=== PATIENT | female | born 1995 | race Caucasian/White ===

== ENCOUNTER 2020-09-21 16:12 | Outpatient (CLI) | payer BC, SELFPAY ==
--- NOTE | ~2020-09-21 | US_ITS ---
US breast LT limited DATE: 09/21/2020 16:42 INDICATION: Breast lump and pain at 12-3:00 for multiple years, worse with menstrual cycles and control shot TECHNIQUE: High-resolution ultrasound imaging at 1200 through 3:00 COMPARISON: 02/26/2019 limited left breast ultrasound at 2:00 5 cm from nipple in area of prior palpa ble complaint FINDINGS: No suspicious mass or shadowing is evident. A prominent duct is noted. IMPRESSION: BI-RADS Category 1, negative Reviewed, dictated and finalized at [facility] Reviewed, dictated and finalized at [facility].
== END 2020-09-21 16:13 | disposition home or self-care (01) ==
PROVIDERS: PCP Student in an Organized Health Care Education/Training Program; Visit Provider Student in an Organized Health Care Education/Training Program
DX: N60.02 Solitary cyst of left breast (principal)
CPT/HCPCS: 76642

== ENCOUNTER 2022-05-17 17:35 | Emergency (ER) | payer OTHER, BC, SELFPAY ==
--- NOTE | ~2022-05-17 | CT_ITS ---
EXAMINATION: CT brain wo con DATE: 05/17/2022 19:55 INDICATION: Posterior headache. TECHNIQUE: Computed tomography (CT) of the head was performed without intravenous contrast. The mA wa s adjusted according to patient size. Iterative reconstruction technique was employed. The dose-lengt h product was 605.33 mGy-cm. COMPARISON: None FINDINGS: There is no intracranial hemorrhage, acute infarction, or abnormal intracranial mass lesion . The ventricles are normal in size. The paranasal sinuses are clear. The mastoid air cells are milton l. The orbits are normal. IMPRESSION: 1. Normal brain. Reviewed, dictated and finalized at [facility] [employer] IMPRESSION: 1. Normal brain.
[2022-05-17 17:55] VITALS: BP 151/89; PULSE 100; RESP 16; TEMP 36.6; O2SAT 99
--- NOTE | 2022-05-17 17:58 | ED.HA ---
HPI - Headache General Chief Complaint: Headache Stated Complaint: Headache, muscle cramping Time Seen by Provider: 05/17/22 17:53 History of Present Illness HPI Narrative: 26-year-old female no medical problems presents to the emergency room for gradual onset of a headache since last night. Patient states that headache began back of her head and is wrapped around to the front. States it is a squeezing sensation denies any photophobia or phonophobia. Denies any nausea. States that she took a multivitamin this morning with no relief of symptoms. Has not tried any other medications to alleviate her symptoms. She states that she was getting mild headaches regularly 2 months ago when she was diagnosed with mono. Review of Systems Review of Systems: CONSTITUTIONAL: Denies fever, chills, or sweats. EYES: Denies visual changes, redness, or discharge. ENT: Denies rhinorrhea, congestion, sore throat, or otalgia. CARDIOVASCULAR: Denies chest pain, palpitations, or edema. RESPIRATORY: Denies cough or dyspnea. GASTROINTESTINAL: Denies abdominal pain, nausea, vomiting, or diarrhea. GENITOURINARY: Denies dysuria or hematuria. SKIN: Denies rash or itching. MUSCULOSKELETAL: Denies back pain, joint pain, or myalgia. NEUROLOGIC: Reports headache PSYCHIATRIC: Denies anxiety or depression. Exam Narrative: GENERAL: Well-appearing, well-nourished, no physical limitations, and in no acute distress. HEAD: Normocephalic, atraumatic. EYES: Conjunctivae normal, PERRLA and EOMI. CHEST: Clear to auscultation. No respiratory distress. No wheezes rales or rhonchi. HEART: Regular rate and rhythm. No murmur heard. Normal peripheral pulses. ABDOMEN: Soft, nontender, nondistended, normal active bowel sounds. EXTREMITIES: Normal range of motion. No edema. No clubbing or cyanosis SKIN: Warm, dry, no rash. No noted wounds NEURO: No focal deficits. Alert and oriented x3. MAEW. CN's II-XI intact bilaterally, normal gait PSYCH: Cooperative. Normal mood and affect. Course Vital Signs Vital signs: Vital Signs Temperature 36.6 C 05/17/22 17:55 Pulse Rate 100 05/17/22 17:55 Respiratory Rate 16 05/17/22 17:55 Blood Pressure 151/89 H 05/17/22 17:55 Pulse Oximetry 99 05/17/22 17:55 Oxygen Delivery Room Air 05/17/22 17:55 Temperature 36.6 C 05/17/22 17:55 Pulse Rate 100 05/17/22 17:55 Respiratory Rate 16 05/17/22 17:55 Blood Pressure 151/89 H 05/17/22 17:55 Pulse Oximetry 99 05/17/22 17:55 Oxygen Delivery Room Air 05/17/22 17:55 MDM - Headache Lab Data Labs: Lab Results 05/17/22 Range/Units 18:30 Influenza A (RT-PCR) Negative (Negative) Influenza B (RT-PCR) Negative (Negative) SARS-CoV-2 RNA (RT-PCR) Negative Imaging Data Radiologist's impression: Impressions Head CT 05/17/22 19:58 IMPRESSION: 1. Normal brain. Discharge Plan Discharge Clinical Impression: Headache, Tension headache Patient Disposition: Home, Self-Care Condition: Stable Instructions: Antibiotic Form, Acute Headache (ED) Additional Instructions: Keep yourself hydrated. May alternate Tylenol and ibuprofen as needed for headache. Follow-up/Referrals: Jesus,CORNELL Urbina [Primary Care Provider] - Time of Disposition: 20:55
[2022-05-17] MEDS: ACETAMINOPHEN 500 MG TABLET 1000 MG PO (18:45)
[2022-05-17 19:22] LABS: Influenza A QL RT-PCR Negative (Negative); Influenza B QL RT-PCR Negative (Negative); SARS-CoV-2 RNA PCR Negative
[2022-05-17] MEDS: SODIUM CHLORIDE 0.9% IV 1,000 ML 999 ML IV CONT (20:19)
[2022-05-17] MEDS: diphenhydrAMINE HCl INJ 50 MG/ML VIAL 25 MG IV PUSH (20:21)
[2022-05-17] MEDS: METOCLOPRAMIDE HCL INJ 10 MG/2 ML VIAL IV PUSH (20:21)
[2022-05-17] MEDS: methylPREDNISolone SOD SUCC 125 MG VIAL IV PUSH (20:21)
[2022-05-17] MEDS: KETOROLAC 30 MG/ML VIAL (*BKC) IV PUSH (20:22)
--- NOTE | 2022-05-25 20:01 | PC.NURSE ---
LATE ENTRY This note is being entered to document information to the patient's record. The following information was omitted on [], by [].NS Fluids completed and stopped prior to patient being discharged
== END 2022-05-17 21:15 | disposition home or self-care (01) ==
PROVIDERS: Emergency Provider Nurse Practitioner Family; PCP Nurse Practitioner
DX: G44.209 Tension-type headache, unspecified, not intractable (principal)
CPT/HCPCS: 70450; 87636; 96361; 96374; 96375; 99284; A9270; J1200; J1885; J2765; J2930; J7030

== ENCOUNTER 2024-10-04 15:28 | Outpatient (CLI) | payer BC, SELFPAY ==
--- NOTE | ~2024-10-04 | US_ITS ---
EXAMINATION: US pelvic complete w TV INDICATION: Irregular menstruation Comparison:No prior studies for comparison. TECHNIQUE: Multiple transabdominal and endovaginal sonographic images of the pelvis performed. FINDINGS: The uterus measures 8.3 x 4 x 4 cm. The endometrial complex measures 11 mm. The right ovary measures 2.8 x 3.6 3.4 cm and the left ovary measures 3.8 x 2.9 x 3.4 cm.. There are small follicles in each ovary. There is a 2 cm left ovarian cysts with minimal internal septation. T here is a right adnexal cyst measuring 1.5 cm, possibly ovarian or paraovarian. Normal doppler signal in both ovaries. There is trace free fluid in the pelvis. There are no abnormal masses seen on either side. IMPRESSION: 1. Right adnexal cyst measuring 1.5 cm, possibly paraovarian. 2: Left ovarian cyst measuring 2 cm. Reviewed, dictated and finalized at [facility].
== END 2024-10-04 15:29 | disposition home or self-care (01) ==
LOC: MICIMG 15:29
PROVIDERS: PCP Nurse Practitioner; Visit Provider Student in an Organized Health Care Education/Training Program
DX: N83.291 Other ovarian cyst, right side (principal); N83.292 Other ovarian cyst, left side
CPT/HCPCS: 76830; 76856

== ENCOUNTER 2024-11-06 14:47 | Outpatient (CLI) | payer OTHER, SELFPAY ==
--- NOTE | ~2024-11-06 | US_ITS ---
EXAM/PROCEDURE: US OB <= 14 weeks fetus - 11/06/2024 14:49 CDT HISTORY: 29 years old Female with Z34.90 - Encounter for supervision of normal , u... COMPARISON: None available. TECHNIQUE: Multiple transvaginal images were obtained. FINdINGS: There is a single, live, intrauterine gestation with a heart rate of 149 bpm. The crown-rump length is 10 mm, which is equivalent to a 9 week, 0 day gestation. This gives an estimated date of deliver y of 06/24/2025. An unremarkable yolk sac is seen. The gestational sac is unremarkable. There is no myometrial abnormality. The ovaries appear unremark able. No significant free fluid is seen. IMPRESSION: Single live embryo with estimated date of delivery of 06/24/2025. Reviewed, dictated and finalized at [facility].
== END 2024-11-06 14:48 | disposition home or self-care (01) ==
LOC: MICIMG 14:48
PROVIDERS: PCP Nurse Practitioner; Visit Provider Student in an Organized Health Care Education/Training Program
DX: Z34.90 Encounter for supervision of normal pregnancy, unspecified, unspecified trimester (principal)
CPT/HCPCS: 76801